=== PATIENT | female | born 1955 | race Hispanic/Latino ===

== ENCOUNTER 2018-04-20 12:11 | Outpatient (CLI) | payer MEDICARE ==
[2018-04-20 13:01] LABS: Blood Urea Nitrogen 12 mg/dL (7-17)
--- NOTE | 2018-04-20 23:26 | Cat Scan Report ---
FINAL REPORT PROCEDURE: CT CHEST W CON TECHNIQUE: Computerized axial tomography of the chest was performed during the IV injection of iodinated nonionic contrast. HISTORY: HX OF BREAST CANCER/TOBACCO ABUSE/PERSISTENT DYSPNEA COMPARISON: No prior studies are available for comparison. TECHNICAL QUALITY: Satisfactory. FINDINGS: Heart and pericardium: No pericardial effusion or thickening. Postsurgical changes. Thoracic aorta: No aneurysm or dissection. Pulmonary vasculature: Limited evaluation of distal arterial branches. Otherwise no abnormality is identified. Lymph nodes: No enlarged thoracic lymph nodes. Lungs: No focal lesions are seen. There are mild posterior dependent changes. No infiltrates. Airways are patent.. Pleural space: No effusion, thickening, or pneumothorax. Musculoskeletal structures: Multilevel degenerative disc changes of the thoracic spine. Upper abdominal structures: Moderate to large volume of stool is noted in the visualized upper abdominal colonic loops.. IMPRESSION: No acute abnormality is identified
== END 2018-04-20 12:12 | disposition home or self-care (01) ==
LOC: CT 12:11
PROVIDERS: ATTEND Specialist
DX: M47.894 Other spondylosis, thoracic region (principal); R06.02 Shortness of breath; E78.00 Pure hypercholesterolemia, unspecified; M19.90 Unspecified osteoarthritis, unspecified site; E03.9 Hypothyroidism, unspecified; E06.3 Autoimmune thyroiditis; E06.9 Thyroiditis, unspecified; F32.9 Major depressive disorder, single episode, unspecified; F41.9 Anxiety disorder, unspecified; Z85.3 Personal history of malignant neoplasm of breast; Z87.891 Personal history of nicotine dependence; Z90.710 Acquired absence of both cervix and uterus; Z90.13 Acquired absence of bilateral breasts and nipples
CPT/HCPCS: 36415; 71260; 82565; 84520; Q9967